=== PATIENT | male | born 1970 | race Caucasian/White ===

== ENCOUNTER 2016-11-12 18:32 | Emergency (ER) | payer SELFPAY ==
[~2016-11-12] VITALS: Ht 180.3 cm; Wt 108.9 kg
[2016-11-12 18:47] VITALS: BP 154/105
--- NOTE | 2016-11-12 20:11 | NUR ---
AMBULATED TO ER BED 3
--- NOTE | 2016-11-12 20:15 | NUR ---
46Y M PRESENT TO ER C/O OF RLQ PAIN. PT STATES HE IS HAVING PAIN FOR FEW DAYS NOW. DENIES N/V/D. PAIN 8/10 IN SCALE.
[2016-11-12] MEDS ORDERED: KETOROLAC 60 MG/2 ML VIAL IM ONE (20:30)
[2016-11-12 20:55] VITALS: BP 135/88
== END 2016-11-12 20:55 | disposition home or self-care (01) ==
LOC: MED 18:32
DX: S39.013A Strain of muscle, fascia and tendon of pelvis, initial encounter (principal); R03.0 Elevated blood-pressure reading, without diagnosis of hypertension; X58.XXXA Exposure to other specified factors, initial encounter; Y93.89 Activity, other specified; Y92.89 Other specified places as the place of occurrence of the external cause; Y99.8 Other external cause status
CPT/HCPCS: 36415; 74176; 80053; 83690; 85025; 96372; 99285; J1885